=== PATIENT | male | born 1975 ===

== ENCOUNTER 2017-01-14 06:40 | Emergency (ER) | payer OTHER ==
[2017-01-14 07:02] VITALS: BP 162/93; PULSE 84; RESP 16; TEMP 98; O2SAT 100
[2017-01-14] MEDS ORDERED: Piperacillin/Tazobact 4.5 GM in Sodium Chloride 0.9% 100 ML IVPB STA (07:39)
[2017-01-14] MEDS ORDERED: Sodium Chloride 0.9% 1,000 ML IV STA (07:48)
--- NOTE | 2017-01-14 07:49 | ED PDOC ---
HPI: General Adult Time Seen by Provider: 01/14/17 07:18 Chief Complaint (Nursing): Abnormal Skin Integrity Chief Complaint (Provider): Bump on Right Groin History Per: Patient History/Exam Limitations: no limitations Onset/Duration Of Symptoms: Days (5 days) Have you had recent travel within the past 21 days to any of the following countries: [place], [place], [place] or [place]?: No Current Symptoms Are (Timing): Still Present Additional Complaint(s): Jasiel gomez, a 42 year old male, presents to the ED complaining of right groin pain. The patient states that he has had a bump on his groin since and it is very painful. Denies discharge and fever. Past Medical History Reviewed: Historical Data, Nursing Documentation, Vital Signs Vital Signs: Last Vital Signs Temp 98.0 F 01/14/17 06:58 Pulse 84 01/14/17 06:58 Resp 16 01/14/17 06:58 BP 162/93 H 01/14/17 06:58 Pulse Ox 100 01/14/17 08:13 - Medical History PMH: Diabetes, HTN - Family History Family History: States: Unknown Family Hx - Home Medications Home Medications: Ambulatory Orders Medication Instructions Recorded Ibuprofen [Motrin] 600 mg PO Q8 PRN #21 tab 10/23/14 Amoxicillin/Clavulanate [Augmentin 1 tab PO Q12 #9 tab 11/04/15 875 MG-125 MG] Cephalexin [cephalexin] 500 mg PO QID #39 cap 01/14/17 Glimepiride [Glimepiride] 2 mg PO BID 01/14/17 Lisinopril [Zestril] 10 mg PO DAILY 01/14/17 Metformin ER [Glucophage XR] 500 mg PO BID 01/14/17 Naproxen [Naprosyn] 500 mg PO BID PRN #15 tablet 01/14/17 Sulfamethoxazole/Trimethoprim 1 tab PO BID #19 tab 01/14/17 [Bactrim DS 800 mg-160 mg] oxyCODONE/Acetaminophen [Percocet 1 tab PO Q6H PRN #15 tab 01/14/17 5/325 mg Tab] - Allergies Allergies/Adverse Reactions: Allergies Allergy/AdvReac Type Severity Reaction Status Date / Time No Known Allergies Allergy Verified 11/04/15 00:16 Review of Systems ROS Statement: Except As Marked, All Systems Reviewed And Found Negative Constitutional: Negative for: Fever Genitourinary Male: Positive for: Other (Small bump in right groin area; denies discharge from bump.) Physical Exam - Reviewed Nursing Documentation Reviewed: Yes Vital Signs Reviewed: Yes - Physical Exam Appears: Positive for: Non-toxic, No Acute Distress Head Exam: Positive for: ATRAUMATIC, NORMAL INSPECTION, NORMOCEPHALIC Skin: Positive for: Normal Color, Warm, Dry Eye Exam: Positive for: Normal appearance, EOMI, PERRL ENT: Positive for: Normal ENT Inspection Neck: Positive for: Normal, Painless ROM, Supple Cardiovascular/Chest: Positive for: Regular Rate, Rhythm, Chest Non Tender. Negative for: Tachycardia Respiratory: Positive for: Normal Breath Sounds. Negative for: Wheezing, Respiratory Distress Gastrointestinal/Abdominal: Positive for: Normal Exam, Bowel Sounds, Soft. Negative for: Tenderness, Guarding, Rebound Male Genital Exam: Positive for: other (Right perineum 5x3 area fluctuance, no drainage no lesions.) Extremity: Positive for: Normal ROM. Negative for: Tenderness, Pedal Edema, Deformity, Swelling Neurologic/Psych: Positive for: Alert, Oriented, Gait - Laboratory Results Result Diagrams: 01/14/17 08:01 01/14/17 08:01 - ECG O2 Sat by Pulse Oximetry: 100 (RA) Pulse Ox Interpretation: Normal Medical Decision Making Medical Decision Makin:18 Initial Impression: 42 year old female presenting with an abscess Initial Plan: * Comp Metabolic Panel * CBC * Morphine 2mg IV * Toradol 15mg IV * Vancomycin 1gm NS 250ml IVPB * Zosyn 4.5gm NS 100ml IVPB * Blood culture * Wound culture * [id number] * Reevaluation Percocet Rx given, [place] [employer] checked, discussed abuse potential. Scribe Attestation Documented by Mary Lindsey acting as a scribe for Colleen Dcukworth MD. Provider Attestation: All medical record entries made by the Scribe were at my direction and personally dictated by me. I have reviewed the chart and agree that the record accurately reflects my personal performance of the history, physical exam, medical decision making, and the department course for this patient. I have also personally directed, reviewed, and agree with the discharge instructions and disposition. Procedures - Incision and Drainage Site: R groin Blade Size: 10 I & D Procedure: sterile dressing applied Progress: Copious amounts of purulent fluid drained, packing placed, dressing applied. Disposition - Clinical Impression Clinical Impression: Abscess of groin, right - Disposition Disposition: Routine/Home Disposition Time: 11:02 Condition: IMPROVED Additional Instructions: RETURN TO ED IN 48 HOURS FOR WOUND CHECK AND PACKING CHANGE. Prescriptions: Cephalexin [cephalexin] 500 mg PO QID #39 cap Naproxen [Naprosyn] 500 mg PO BID PRN #15 tablet PRN Reason: Pain, Moderate (4-7) oxyCODONE/Acetaminophen [Percocet 5/325 mg Tab] 1 tab PO Q6H PRN #15 tab PRN Reason: Pain, Severe (8-10) Sulfamethoxazole/Trimethoprim [Bactrim DS 800 mg-160 mg] 1 tab PO BID #19 tab Instructions: Abscess Incision and Drainage (ED) Print Language: BULGARIAN
[2017-01-14] MEDS ORDERED: Vancomycin 1 g Inj ONE (07:53)
[2017-01-14 08:04] LABS: BASO % 0.4 % (0.0-2.0); EOS # 0.1 K/uL (0.0-0.7); EOS % 1.6 % (0.0-4.0); HEMATOCRIT 39.2 % (35.0-51.0); LYMPH # 1.2 K/uL (1.0-4.3); MEAN CELL VOLUME 88.2 fl (80.0-94.0); MEAN CORPUSCULAR HEMOGLOBIN 29.3 pg (27.0-31.0); MEAN CORPUSCULAR HGB CONC 33.3 g/dL (33.0-37.0); MEAN PLATELET VOLUME 9.5 fl (7.2-11.7); MONO # 0.7 K/uL (0.0-0.8); NEUT # 6.6 K/uL (1.8-7.0); RED CELL DISTRIBUTION WIDTH 13.4 % (11.5-14.5); WHITE BLOOD COUNT 8.7 K/uL (4.8-10.8)
[2017-01-14 08:35] LABS: ALB/GLOB RATIO 1.1 (1.0-2.1); ALKALINE PHOSPHATASE 99 U/L (38-126); ALT/SGPT 49 U/L (21-72); AST/SGOT 18 U/L (17-59); BILIRUBIN,TOTAL 0.5 mg/dl (0.2-1.3); BLOOD UREA NITROGEN 22 mg/dl (9-20); CALCIUM 9.3 mg/dL (8.4-10.2); CARBON DIOXIDE 22 mmol/L (22-30); CHLORIDE 109 mmol/L (98-107); GFR AFRICAN-AMERICAN > 60; GLUCOSE,RANDOM 336 mg/dL (75-110); POTASSIUM 4.6 MMOL/L (3.6-5.0); SODIUM 140 mmol/l (132-148); TOTAL PROTEIN 7.1 G/DL (6.3-8.2)
[2017-01-14] MEDS ORDERED: Lidocaine 1% Inj (20ml) ONE (08:47)
== END 2017-01-14 11:42 | disposition home or self-care (01) ==
LOC: H.ER 06:40
DX: L02.214 Cutaneous abscess of groin (principal)

== ENCOUNTER 2017-01-16 18:12 | Emergency (ER) | payer OTHER ==
[2017-01-16 18:32] VITALS: BP 139/79; PULSE 74; RESP 18; TEMP 97.9; O2SAT 98
--- NOTE | 2017-01-16 19:14 | ED PDOC ---
HPI: Wound Care - HPI Time Seen by Provider: 01/16/17 19:00 Chief Complaint (Nursing): Wound Check Chief Complaint (Provider): Wound check History Per: Patient Exam Limitations: no limitations Additional Complaint(s): Pt is a 42 yo male, presents to ED for evaluation of wound present in his right inguinal region. Pt was previously seen and had I&D done on site and was given a dose of IV antibiotics while in the ED. Pt was d/c home with packing in his wound and IV medications. Pt returns today for follow up and reevaluation. Denies any pain or discharge from the area. Offers no additional medical complaints. Of note, pt reports he is compliant with his high blood sugar medications. Past Medical History Reviewed: Historical Data, Nursing Documentation, Vital Signs Vital Signs: Last Vital Signs Temp 97.9 F 01/16/17 18:29 Pulse 74 01/16/17 18:29 Resp 18 01/16/17 18:29 BP 139/79 01/16/17 18:29 Pulse Ox 98 01/16/17 18:29 - Medical History PMH: Diabetes, HTN - Family History Family History: States: Unknown Family Hx - Home Medications Home Medications: Ambulatory Orders Medication Instructions Recorded Ibuprofen [Motrin] 600 mg PO Q8 PRN #21 tab 10/23/14 Amoxicillin/Clavulanate [Augmentin 1 tab PO Q12 #9 tab 11/04/15 875 MG-125 MG] Cephalexin [cephalexin] 500 mg PO QID #39 cap 01/14/17 Glimepiride [Glimepiride] 2 mg PO BID 01/14/17 Lisinopril [Zestril] 10 mg PO DAILY 01/14/17 Metformin ER [Glucophage XR] 500 mg PO BID 01/14/17 Naproxen [Naprosyn] 500 mg PO BID PRN #15 tablet 01/14/17 Sulfamethoxazole/Trimethoprim 1 tab PO BID #19 tab 01/14/17 [Bactrim DS 800 mg-160 mg] oxyCODONE/Acetaminophen [Percocet 1 tab PO Q6H PRN #15 tab 01/14/17 5/325 mg Tab] - Allergies Allergies/Adverse Reactions: Allergies Allergy/AdvReac Type Severity Reaction Status Date / Time No Known Allergies Allergy Verified 11/04/15 00:16 Review of Systems ROS Statement: Except As Marked, All Systems Reviewed And Found Negative Skin: Positive for: Other (wound check) Physical Exam - Reviewed Nursing Documentation Reviewed: Yes Vital Signs Reviewed: Yes - Physical Exam Appears: Positive for: Well, Non-toxic, No Acute Distress Head Exam: Positive for: ATRAUMATIC, NORMAL INSPECTION, NORMOCEPHALIC Skin: Positive for: Normal Color, Warm, DRY Eye Exam: Positive for: Normal appearance Neck: Positive for: Normal Cardiovascular/Chest: Positive for: Regular Rate, Rhythm Respiratory: Positive for: Normal Breath Sounds. Negative for: Respiratory Distress Gastrointestinal/Abdominal: Positive for: Other (2 cm packed wound noted in pt' s right inguinal region; induration notes, no erythema or signs of infection) Neurologic/Psych: Positive for: Alert, Oriented - ECG O2 Sat by Pulse Oximetry: 98 (RA) Pulse Ox Interpretation: Normal - Progress ED Course And Treament: Blood glucose 196 Wound repacked in ED. Medical Decision Making Medical Decision Making: Time: 1907 Impression: wound check Plan: -- Packing removed from wound and repacked. -- Accucheck -- Reassess Scribe Attestation: Documented by Brittani Rahman acting as a scribe for MIRELLA Adams Provider Attestation: All medical record entries made by the Scribe were at my direction and personally dictated by me. I have reviewed the chart and agree that the record accurately reflects my personal performance of the history, physical exam, medical decision making, and the department course for this patient. I have also personally directed, reviewed, and agree with the discharge instructions and disposition. Disposition - Clinical Impression Clinical Impression: Encounter for wound re-check - Patient ED Disposition Is Patient to be Admitted: No - Disposition Referrals: Venancio Resendez MD [Staff Provider] - Disposition: Routine/Home Disposition Time: 19:33 Condition: FAIR Instructions: Abscess (ED) Print Language: ESTONIAN
== END 2017-01-16 19:58 | disposition home or self-care (01) ==
LOC: H.ER 18:12
DX: Z48.00 Encounter for change or removal of nonsurgical wound dressing (principal); E11.9 Type 2 diabetes mellitus without complications; I10 Essential (primary) hypertension

== ENCOUNTER 2017-01-22 15:10 | Emergency (ER) | payer OTHER ==
[2017-01-22 15:16] VITALS: BP 159/87; PULSE 76; RESP 16; TEMP 97.8; O2SAT 100
--- NOTE | 2017-01-22 15:51 | ED PDOC ---
HPI: Wound Care - HPI Time Seen by Provider: 01/22/17 15:28 Chief Complaint (Nursing): Wound Check Chief Complaint (Provider): Would Check History Per: Patient Onset/Duration Of Symptoms: Days Additional Complaint(s): Jasiel Wang is a 42 year old male that presents to the ED for a follow up visit of a wound in his right groin area. Patient initially came to ED on , where he had I&D of wound and it was packed, as well as was given antibiotics for treatment of wound. Patient then returned to ED on 01/16/17, where the packing was removed and then repacked. Patient was supposed to return on 01/19/17, but presents today and reports that packing removal came out on its own. He denies any fever, chills, nausea, or vomiting. Past Medical History Reviewed: Historical Data, Nursing Documentation, Vital Signs Vital Signs: Last Vital Signs Temp 97.8 F 01/22/17 15:14 Pulse 76 01/22/17 15:14 Resp 16 01/22/17 15:14 BP 159/87 H 01/22/17 15:14 Pulse Ox 100 01/22/17 15:14 - Medical History PMH: Diabetes, HTN - Family History Family History: States: Unknown Family Hx - Home Medications Home Medications: Ambulatory Orders Medication Instructions Recorded Ibuprofen [Motrin] 600 mg PO Q8 PRN #21 tab 10/23/14 Amoxicillin/Clavulanate [Augmentin 1 tab PO Q12 #9 tab 11/04/15 875 MG-125 MG] Cephalexin [cephalexin] 500 mg PO QID #39 cap 01/14/17 Glimepiride [Glimepiride] 2 mg PO BID 01/14/17 Lisinopril [Zestril] 10 mg PO DAILY 01/14/17 Metformin ER [Glucophage XR] 500 mg PO BID 01/14/17 Naproxen [Naprosyn] 500 mg PO BID PRN #15 tablet 01/14/17 Sulfamethoxazole/Trimethoprim 1 tab PO BID #19 tab 01/14/17 [Bactrim DS 800 mg-160 mg] oxyCODONE/Acetaminophen [Percocet 1 tab PO Q6H PRN #15 tab 01/14/17 5/325 mg Tab] - Allergies Allergies/Adverse Reactions: Allergies Allergy/AdvReac Type Severity Reaction Status Date / Time No Known Allergies Allergy Verified 11/04/15 00:16 Review of Systems Constitutional: Negative for: Fever, Chills Gastrointestinal: Negative for: Nausea, Vomiting Musculoskeletal: Positive for: Other (wound in right groin area) Physical Exam - Reviewed Nursing Documentation Reviewed: Yes Vital Signs Reviewed: Yes - Physical Exam Appears: Positive for: Non-toxic, No Acute Distress Head Exam: Positive for: ATRAUMATIC, NORMOCEPHALIC Skin: Positive for: Normal Color, Warm Cardiovascular/Chest: Positive for: Regular Rate, Rhythm. Negative for: Murmur Respiratory: Positive for: Normal Breath Sounds. Negative for: Wheezing Male Genital Exam: Positive for: other (mild induration in right groin area, open wound. No evidence of pus, drainage, or swelling. Area is nontender. ) Neurologic/Psych: Positive for: Alert, Oriented - ECG O2 Sat by Pulse Oximetry: 100 (RA) Pulse Ox Interpretation: Normal Medical Decision Making Medical Decision Making: Impression: Wound Care Plan: * Patient instructed to keep area clean and to avoid accumulation of sweat as much as possible; patient advised to wear boxer shorts or or boxer briefs rather than 'standard' underwear in order to avoid infection in right groin area. Patient sent home with wound care instructions, no need for further workup in ED. Stable for discharge home. Scribe Attestation: Documented by Mayra Bingham, acting as a scribe for Fátima Mcclelland PA-C. Provider Scribe Attestation: All medical record entries made by the Scribe were at my direction and personally dictated by me. I have reviewed the chart and agree that the record accurately reflects my personal performance of the history, physical exam, medical decision making, and the department course for this patient. I have also personally directed, reviewed, and agree with the discharge instructions and disposition. Disposition - Clinical Impression Clinical Impression: Encounter for wound re-check - Patient ED Disposition Is Patient to be Admitted: No - Disposition Disposition: Routine/Home Disposition Time: 15:45 Condition: STABLE Instructions: Chronic Wound Care (ED)
== END 2017-01-22 15:46 | disposition home or self-care (01) ==
LOC: H.ER 15:10
DX: Z51.89 Encounter for other specified aftercare (principal); E11.9 Type 2 diabetes mellitus without complications; I10 Essential (primary) hypertension